=== PATIENT | male | born 1955 | race Caucasian/White ===

== ENCOUNTER 2019-02-26 16:47 | Emergency (ER) | payer OTHER ==
[~2019-02-26] VITALS: Ht 188 cm; Wt 92.3 kg
[2019-02-26] MEDS ORDERED: morphine 4 MG/ML inj SYRINge IV PRN (17:10)
[2019-02-26] MEDS ORDERED: ondansetron/PF 4mg/2ml inj IV ONE (17:10)
[2019-02-26] MEDS ORDERED: normal saline 1000ML IV soln IVB ONE (17:10)
[2019-02-26] MEDS ORDERED: LIDOcaine 1% 30ml preserv. free vial IJ ONE (17:15)
[2019-02-26] MEDS ORDERED: bacitracin 15gm ointment TP ONE (17:15)
[2019-02-26] MEDS ORDERED: TETanus/Pertussis (Acell)/Diphther VAC/PF (Tdap-Adult) 0.5ml syringe IM ONE (17:15)
[2019-02-26 17:29] LABS: BASOPHILS # (AUTO) 0.1 X10'3 (0-0.2); BASOPHILS % (AUTO) 0.9 % (0-1); EOSINOPHILS # (AUTO) 0.1 X10'3 (0-0.9); EOSINOPHILS % (AUTO) 2.3 % (0-6); HEMATOCRIT 41.8 % (42.0-52.0); HEMOGLOBIN 14.2 g/dl (14.0-17.9); LYMPHOCYTES # (AUTO) 2.5 X10'3 (1.1-4.8); MEAN CORPUSCULAR HEMOGLOBIN 29.9 PG (27.0-31.0); MEAN CORPUSCULAR VOLUME 87.8 FL (78-98); MEAN PLATELET VOLUME 10.1 FL (7.4-10.4); MONOCYTES # (AUTO) 0.5 X10'3 (0-0.9); MONOCYTES % (AUTO) 7.9 % (2-12); NEUTROPHILS # (AUTO) 3.3 X10'3 (1.8-7.7); NEUTROPHILS % (AUTO) 49.9 % (42-75); PLATELET COUNT 156 X10'3 (140-440); RED BLOOD COUNT 4.76 X10'6 (4.70-6.10); WHITE BLOOD COUNT 6.5 X10'3 (4.5-11.0)
[2019-02-26 17:40] LABS: ALANINE AMINOTRANSFERASE 38 U/L (12-78); ALBUMIN/GLOBULIN RATIO 1.1 (1.1-1.5); ALKALINE PHOSPHATASE 49 IU/L (46-116); ANION GAP 11 (8-16); ASPARTATE AMINO TRANSFERASE 26 U/L (10-37); BILIRUBIN,TOTAL 0.5 MG/DL (0.1-1.0); BLOOD UREA NITROGEN 19 MG/DL (7-18); BUN/CREATININE RATIO 16.1 (5.4-32.0); CALCIUM 9.2 MG/DL (8.5-10.1); CHLORIDE 103 MMOL/L (99-107); CREATININE 1.18 MG/DL (0.60-1.10); GLUCOSE 96 MG/DL (70-104); POTASSIUM 3.6 MMOL/L (3.5-5.1); SODIUM 140 MMOL/L (135-145); TOTAL CARBON DIOXIDE 26.2 MMOL/L (24-32); TOTAL PROTEIN 7.5 G/DL (6.4-8.2); eGFR 63 ML/MIN
[2019-02-26] MEDS ORDERED: CEPH-571 PO (19:13)
[2019-02-26] MEDS ORDERED: HYDR-4383 PO (19:13)
[2019-02-26] MEDS ORDERED: HYDROcodone/acetaminophen 10/325mg tab PO ONE (19:20)
--- NOTE | 2019-02-26 19:40 | NUR ---
PAIN MEDS ADMINISTERED THEN WOUND CLEANED WITH ns, BACTRACIN, NON-ADHESIVE DRESSING AND GAUZE APPLIED. VOLAR SPLINT APPLIED BY JANE HOFFMANN.
[2019-02-26 20:09] VITALS: BP 154/88
[2019-02-28] MEDS ORDERED: HYDR-4353 PO (14:03)
== END 2019-02-26 20:10 | disposition home or self-care (01) ==
LOC: ER 16:49
DX: S61.012A Laceration without foreign body of left thumb without damage to nail, initial encounter (principal); S61.211A Laceration without foreign body of left index finger without damage to nail, initial encounter; S61.215A Laceration without foreign body of left ring finger without damage to nail, initial encounter; Z98.890 Other specified postprocedural states; Z79.2 Long term (current) use of antibiotics; Z79.899 Other long term (current) drug therapy; W45.8XXA Other foreign body or object entering through skin, initial encounter; Y93.89 Activity, other specified; Y92.89 Other specified places as the place of occurrence of the external cause; Y99.8 Other external cause status
CPT/HCPCS: 12004; 36415; 73130; 80053; 85025; 85610; 90471; 90715; 96374; 96375; 99284; J2270; J2405; J3490; J7030